=== PATIENT | female | born 1985 | race Caucasian/White ===

== ENCOUNTER → 2017-04-01 | Outpatient (CLI) | payer BC ==
[~2017-04-01] MED LIST: ETONMIS VAGRING; ONDA4TAB46 PO
--- NOTE | 2017-04-02 07:57 | MAMMOGRAPHY REPORT ---
BILATERAL DIGITAL DIAGNOSTIC MAMMOGRAM AND TARGETED BILATERAL ULTRASOUND: 04/01/2017 CLINICAL HISTORY: 31-year-old woman with bilateral subpectoral silicone implants placed in 2014 who reports the right implant feels harder and moves more compared to the left, and she has noticed this over the past few months. This is a change from when the implants were first placed. No family hi story of breast cancer. TECHNIQUE: Bilateral CC and MLO views of the breasts with and without implant displacement views we re obtained. COMPARISON: No prior exams were available for comparison. BREAST COMPOSITION: There are scattered areas of fibroglandular density in both breasts. FINDINGS: Bilateral subpectoral silicone implants are in place. There are folds noted in the right implant. No folds are identified on the left. No obvious extracapsular silicone is identified mamm ographically. There is a 5.6 mm nodular asymmetry in the lateral anterior left breast on the implan t displaced CC view, and a 6.2 mm nodular asymmetry in the superior posterior left breast on the imp lant displaced MLO view. Additional evaluation with ultrasound was performed. No other suspicious mass, architectural distortion or cluster of microcalcifications is seen within the breast parenchym a. Targeted ultrasound was performed in the lateral and superior left breast, and also throughout the r ight breast to assess the implant. In the 12:00 periareolar left breast, there is an oval parallel circumscribed hypoechoic mass measuring 3.3 x 1.6 x 2.8 mm. In the 1:00 left breast, 57 m from the nipple, there is a rounded hypoechoic solid versus cystic masses measuring 3.2 x 3.1 x 3.1 mm. Both could represent benign fat necrosis, complicated cyst or benign appearing mass such as a fibroadeno ma. A short interval follow-up diagnostic left mammogram and repeat targeted ultrasound in the 12:0 0 and 1:00 axes is recommended to ensure stability in 6 months. Sonographic evaluation of the right implant demonstrates a fold extending from the 12:00 and throughout the entire 3:00 axis. No defin ite stepladder sign is identified on ultrasound to suggest intracapsular rupture. No folds or evide nce of intracapsular rupture are seen in the left implant on ultrasound. IMPRESSION: ACR-BI-RADS CATEGORY 3: PROBABLY BENIGN, TARGETED ULTRASOUND ACR-BI-RADS CATEGORY 3: OK OBABLY BENIGN 1. There are folds visible throughout the right subpectoral silicone implant that are not evident o n the left. No definitive evidence of intracapsular or extracapsular rupture. It is unclear if thi s may simply represent normal variation in positioning. However, clinical follow-up with the patien t's plastic surgeon is recommended and if there is any concern for intracapsular or extracapsular ru pture, an MRI evaluation would be the test of choice. 2. There are subcentimeter nodular asymmetries in the lateral and superior left breast with benign- appearing correlates in the 12:00 and 1:00 axis on ultrasound that could represent benign fibroadeno mas, complicated cysts or fat necrosis. However, a short interval follow-up diagnostic left mammogr am and repeat targeted ultrasound is recommend to ensure stability in 6 month. These results and recommendations were discussed with the patient at the time of the exam. Approximately 10% of breast cancers are not detected with mammography. A negative mammographic repor t should not delay biopsy if a clinically suggestive mass is present. Elsi Vargas M.D. ay/:04/01/2017 13:27:03 Terminal Worker: Joie WASHINGTON)(Dominique), [facility] letter sent: Follow Up Recommended 3 BI-RADS Code: ACR-BI-RADS Category 3: Probably Benign Ultrasound BI-RADS: ACR-BI-RADS Category 3: P robably Benign
== END | disposition home or self-care (01) ==
LOC: C.MAMM 09:10
PROVIDERS: ATTEND Family Medicine
DX: T85.42XA Displacement of breast prosthesis and implant, initial encounter (principal); Y84.8 Other medical procedures as the cause of abnormal reaction of the patient, or of later complication, without mention of misadventure at the time of the procedure

== ENCOUNTER → 2017-05-10 | Outpatient (CLI) | payer BC ==
[~2017-05-10] MED LIST changes: -ONDA4TAB46 PO
[2017-05-10 13:03] LABS: URINE APPEARANCE CLEAR (CLEAR); URINE BILIRUBIN NEG (NEG); URINE COLOR YELLOW; URINE NITRITE NEG (NEG); URINE PH 5.5 (4.5-7.5); URINE SPECIFIC GRAVITY 1.017 (1.000-1.030); UROBILINOGEN NEG (NEG)
[2017-05-10 13:07] LABS: MANUAL MICROSCOPIC REQUIRED? NO; REVIEW REQ? NO
== END | disposition home or self-care (01) ==
LOC: C.LABSPEC 12:19
PROVIDERS: ATTEND Obstetrics & Gynecology
DX: Z34.90 Encounter for supervision of normal pregnancy, unspecified, unspecified trimester (principal)

== ENCOUNTER → 2017-05-16 | Outpatient (CLI) | payer BC ==
[2017-05-20 09:14] LABS: CHLAMYDIA TRACH RNA*** NOT DETECTED (NOT DETECTED); GC (NEIS GONORRHOEAE)RNA** NOT DETECTED (NOT DETECTED)
== END | disposition home or self-care (01) ==
LOC: C.LABSPEC 16:00
PROVIDERS: ATTEND Obstetrics & Gynecology
DX: Z34.90 Encounter for supervision of normal pregnancy, unspecified, unspecified trimester (principal)

== ENCOUNTER → 2017-06-10 | Outpatient (CLI) | payer BC ==
[2017-06-10 15:48] LABS: BASO % 0.1 %; BASO ABS # 0.01 K/uL (0-0.2); COMPLETE YES; EOS % 1.6 %; HEMATOCRIT 32.4 % (37-47); IG% 0.1 %; LYMPH % 17.6 %; LYMPH ABS # 1.46 K/uL (1.2-3.4); MEAN CELL VOLUME 90.5 fL (80-100); MEAN CORPUSCULAR HEMOGLOBIN 30.7 pg (25-34); MEAN PLATELET VOLUME 10.7 fL (7.4-10.4); MONO % 7.2 %; NEUT % 73.4 %; PLATELET COUNT 283 K/uL (130-400); RED BLOOD COUNT 3.58 M/uL (4.2-5.4); WHITE BLOOD COUNT 8.31 K/uL (4.8-10.8)
== END | disposition home or self-care (01) ==
LOC: C.LAB1850 14:25
PROVIDERS: ATTEND Obstetrics & Gynecology
DX: Z34.90 Encounter for supervision of normal pregnancy, unspecified, unspecified trimester (principal)

== ENCOUNTER → 2017-07-18 | Outpatient (CLI) | payer BC ==
[2017-07-18 11:52] LABS: GTGD 50 Grams
== END | disposition home or self-care (01) ==
LOC: C.LAB1850 09:01
PROVIDERS: ATTEND Obstetrics & Gynecology
DX: Z34.90 Encounter for supervision of normal pregnancy, unspecified, unspecified trimester (principal)

== ENCOUNTER → 2017-10-02 | Outpatient (CLI) | payer BC ==
[2017-10-02 10:37] LABS: HEMATOCRIT 30.4 % (37-47)
[2017-10-02 11:30] LABS: URINE APPEARANCE CLEAR (CLEAR); URINE BILIRUBIN NEG (NEG); URINE COLOR YELLOW; URINE EPITHELIAL CELL AUTO >30 /lpf (0-5); URINE NITRITE NEG (NEG); URINE SPECIFIC GRAVITY 1.022 (1.000-1.030); UROBILINOGEN NEG (NEG)
[2017-10-02 11:35] LABS: MANUAL MICROSCOPIC REQUIRED? NO; REVIEW REQ? NO
[2017-10-02 14:07] LABS: GTGD 50 Grams
== END | disposition home or self-care (01) ==
LOC: C.LAB1850 09:24
PROVIDERS: ATTEND Obstetrics & Gynecology
DX: Z34.82 Encounter for supervision of other normal pregnancy, second trimester (principal)

== ENCOUNTER → 2017-10-21 | Outpatient (CLI) | payer BC ==
[2017-10-21 16:00] LABS: URINE APPEARANCE CLEAR (CLEAR); URINE BILIRUBIN NEG (NEG); URINE COLOR YELLOW; URINE EPITHELIAL CELL AUTO >30 /lpf (0-5); URINE NITRITE NEG (NEG); URINE SPECIFIC GRAVITY 1.016 (1.000-1.030); UROBILINOGEN NEG (NEG)
[2017-10-21 16:04] LABS: MANUAL MICROSCOPIC REQUIRED? NO; REVIEW REQ? NO
== END | disposition home or self-care (01) ==
LOC: C.LABSPEC 15:40
PROVIDERS: ATTEND Obstetrics & Gynecology
DX: Z22.330 Carrier of Group B streptococcus (principal)

== ENCOUNTER 2017-12-10 19:08 | Outpatient (CLI) | payer OTHER ==
[~2017-12-10] VITALS: Ht 157.5 cm; Wt 69.4 kg
[2017-12-10 20:12] VITALS: Ht 157.5 cm; Wt 69.4 kg
[2017-12-10] MEDS ORDERED: PRENTAB26 PO (20:15)
[2017-12-10] MEDS ORDERED: FERR1TAB23 PO (20:15)
== END 2017-12-10 20:42 | disposition home or self-care (01) ==
LOC: C.LD 19:08 → C.OPB 19:08
PROVIDERS: ATTEND Obstetrics & Gynecology
DX: O36.5990 Maternal care for other known or suspected poor fetal growth, unspecified trimester, not applicable or unspecified (principal); Z3A.00 Weeks of gestation of pregnancy not specified

== ENCOUNTER 2017-12-11 07:41 | Inpatient (IN) | payer OTHER ==
[~2017-12-11] VITALS: Ht 157.5 cm; Wt 69.5 kg
[~2017-12-11 07:41] MED LIST changes: -ETONMIS VAGRING; +FERR1TAB23 PO; +PRENTAB26 PO
[2017-12-11 08:04] VITALS: Ht 157.5 cm; Wt 69.5 kg
[2017-12-11] MEDS ORDERED: LACTATED RINGER'S 1000ML 1,000 ML IV SCH (08:25)
[2017-12-11] MEDS ORDERED: LACTATED RINGER'S 1000ML 1,000 ML IV PRN (08:25)
[2017-12-11] MEDS ORDERED: LACTATED RINGER'S 1000ML 500 ML IV PRN ×2 (08:25→14:02)
[2017-12-11] MEDS ORDERED: OXYTOCIN 30 UNITS/500ML NSS IV PRN ×2 (08:30→15:30)
[2017-12-11 08:50] LABS: HEMATOCRIT 30.8 % (37-47); HEMOGLOBIN 10.4 g/dL (12.0-16.0); MEAN CELL VOLUME 95.1 fL (80-100); MEAN CORPUSCULAR HEMOGLOBIN 32.1 pg (25-34); MEAN CORPUSCULAR HGB CONC 33.8 g/dl (32-36); MEAN PLATELET VOLUME 10.9 fL (7.4-10.4); PLATELET COUNT 180 K/uL (130-400); RED CELL DISTRIBUTION WIDTH CV 14.1 % (11.5-14.5); RED CELL DISTRIBUTION WIDTH SD 48.5 fL (36.4-46.3); WHITE BLOOD COUNT 10.49 K/uL (4.8-10.8)
[2017-12-11] MEDS ORDERED: PENICILLIN G POTASSIUM IV 6 MU in DEXTROSE 5% 250ML 250 ML IV ONE (09:00)
[2017-12-11] MEDS ORDERED: PENICILLIN G POTASSIUM IV 3 MU in DEXTROSE 5% 100ML 100 ML IV PRN (09:00)
--- NOTE | 2017-12-11 09:26 | Medical Student: [facility] ---
Med Student History & Physical Date of Service Dec 11, 2017. Chief Complaint Induction of labor History of Present Illness Source: patient, clinic records, hospital records Patient is a 32 YOF, , with an DOROTHY of 12/25/2017 by LMP, who presents at 38 weeks of GA for induction of labor due to IUGR. The course has been complicated by IUGR which was diagnosed on growth ultrasound at 32 weeks ( 16th percentile). The patient's case was consulted with M in [place] via phonecall, who recommended inducing delivery at 39 weeks. The patient was then followed with twice weekly NSTs and weekly AFIs and dopplers which were reassuring. However, subsequent growth ultrasounds indicated the fetus was falling further off the growth curve (less than 2nd percentile) and thus it was decided to induce labor a week earlier at 38 weeks. The patient came to L&D last night to have an intrauterine pinon bulb placed. The bulb fell out this morning upon returning to L&D. She is currently not experiencing any contractions or leakage of fluids. Rubella Immune, GBS POSITIVE, HBV neg, VDRL/RPR nonreactive, C/G negative, Blood type A+, 1hr glucose 97mg/dL. H&H of 10.4 and 30.8. OB History of an 7lb 13oz male at 40-5 weeks of GA. INSTRUMENTS SALES REPRESENTATIVE History Menarche at age 10, LMP of 03/20/2017, last pap done in 03/23/16 and was normal. She has no history of abnormal pap smears. Past Medical History Migraines before menses Past Surgical History Breast augmentation in 2013 Social History Smoking Status: Never Smoker Smokeless Tobacco Use: No Alcohol Use: none Drug Use: none Marital Status: Housing status: lives with family Occupational Status: employed Allergies Coded Allergies: No Known Allergies (Unverified , None, 12/10/17) Home Medications Ferrous Sulfate (Iron), 1 TAB PO DAILY Multivit/Min/Iron/Fol Ac/Pren ( Vitamin), 1 TAB PO DAILY Review of Systems Constitutional: No fever, No chills Respiratory: No cough, No shortness of breath, No dyspnea on exertion Cardiovascular: No chest pain, No palpitations Abdomen: No pain, No nausea, No vomiting Genitourinary - Female: + dysuria, + urinary frequency, + urinary incontinence , + urinary retention Psychiatric: + depression symptoms Physical Exam General Appearance: WD/WN, no apparent distress Head: normocephalic, atraumatic Eyes: normal inspection ENT: normal ENT inspection Respiratory/Chest: chest non-tender, lungs clear, normal breath sounds, no respiratory distress, no accessory muscle use Cardiovascular: regular rate, rhythm, no edema, no gallop, no murmur Abdomen / GI: normal bowel sounds, non tender, soft, + pertinent finding ( Gravid abdomen. heart tones present. Estimated weight of 6 lbs. Fetus is vertex. ) Fundal Height: Term Genitourinary - Female: external genitalia normal, + pertinent finding (Cervix exam performed by Dr. Hussein found the patient at 2cm dilated, 50% effaced, and -2 station. ) Extremities: normal inspection, no calf tenderness Neurologic/Psych: alert, normal mood/affect, normal reflexes, oriented x 3 Skin: normal color, warm/dry, no rash Monitoring External Monitor: Moderate variability, accels present, variable decels present, baseline heart rate of 130, category 2 tracing. Tocodynamometer: No contractions present. Laboratory Results 12/11/17 08:35 Test 12/11/17 08:35 Red Blood Count 3.24 M/uL (4.2-5.4) Mean Corpuscular Volume 95.1 fL (80-100) Mean Corpuscular Hemoglobin 32.1 pg (25-34) Mean Corpuscular Hemoglobin Concent 33.8 g/dl (32-36) RDW Standard Deviation 48.5 fL (36.4-46.3) RDW Coefficient of Variation 14.1 % (11.5-14.5) Mean Platelet Volume 10.9 fL (7.4-10.4) Assessment and Plan Assessment: Patient is a 32YOF at 38 weeks of GA. has been complicated with IUGR. tracing category 2. Plan: Admit to L&D. Will start pitocin to get the patient into a regular contraction pattern. Patient is GBS positive so will give penicillin at this time. The EFM has been showing some variable decels prior to starting pitocin. Given the fetus' small size, there is some concern that the fetus may not have much reserve and will not tolerate labor well and later require C/S. For now, we will continue with the planned induction of labor with pitocin and continue to monitor.
[2017-12-11] MEDS ORDERED: BUPIVACAINE 0.25% 30 ML VIAL ONE (13:22)
[2017-12-11] MEDS ORDERED: EpHEDrine SULFATE INJ 50 MG/ML AMP ONE (13:22)
[2017-12-11] MEDS ORDERED: FENTANYL CITRATE INJ 50 MCG/1 ML 2 ML VIAL ONE (13:22)
[2017-12-11] MEDS ORDERED: FENTANYL 2MCG/ML ROPIV 1.25MG/ML 100ML BAG EPI ONE (13:23)
[2017-12-11] MEDS ORDERED: NALOXONE HCL INJ 1 MG in SODIUM CHLORIDE 0.9% 1000ML 1,000 ML IV PRN (14:02)
[2017-12-11] MEDS ORDERED: NALOXONE HCL INJ 0.4 MG/1 ML VIAL/CARP IV PRN (14:15)
[2017-12-11] MEDS ORDERED: FENTANYL 2MCG/ML ROPIV 1.25MG/ML 100ML BAG EPI PRN (14:15)
[2017-12-11] MEDS ORDERED: NALBUPHINE HCL INJ 10 MG/ML AMP IV PRN (14:15)
[2017-12-11] MEDS ORDERED: EpHEDrine SULFATE INJ 50 MG/ML AMP IV PRN (14:15)
[2017-12-11] MEDS ORDERED: ONDANSETRON INJ 2 MG/ML 2 ML VIAL IV PRN (14:15)
[2017-12-11] MEDS ORDERED: DiphenhydrAMINE HCL 50 MG/ML VIAL IV PRN (14:15)
[2017-12-11] MEDS ORDERED: ACETAMINOPHEN/CODEINE 300/30MG TAB PO PRN ×2 (15:30)
[2017-12-11] MEDS ORDERED: ACETAMINOPHEN 325 MG TAB PO PRN (15:30)
[2017-12-11] MEDS ORDERED: DIPHTHERIA/TETANUS/PERTUSSIS 0.5 ML SYR/VIAL IM. ONE (15:30)
[2017-12-11] MEDS ORDERED: LANOLIN OINT EXT PRN (15:30)
[2017-12-11] MEDS ORDERED: HYDROCORTISONE ACETATE 25 MG SUPP PR PRN (15:30)
[2017-12-11] MEDS ORDERED: SUPERCREAM 0.870 % 15GM JAR EXT PRN (15:30)
[2017-12-11] MEDS ORDERED: BENZOCAINE 20% AER SPR 82.5 GM CAN EXT PRN (15:30)
--- NOTE | 2017-12-11 15:33 | Medical Student: [facility] ---
Medical Student Delivery Note Patient is a 32 YOF GBS positive now P2 with DOROTHY 12/25/2017 by LMP who presented to L&D this morning for induction of labor at 38 weeks due to IUGR. The patient's was entirely normal until decreased growth was found on a 32 week growth ultrasound. The baby was found be to at the 3rd percentile at this time. [facility] had originally recommended delivery be induced at 39 weeks, but later changed that recommendation to induce at 38 weeks after the infant fell off the growth curve at 36 weeks to less than the 2nd percentile. Labor was induced this morning with pitocin per the usual induction protocol in addition to administration of penicillin. The patient's labor progressed nicely throughout the day. The infant did have variable decels throughout the day on tracing, but remained a category 2 tracing. The patient was checked early this afternoon by Dr. Hussein and was found to be at 6cm. At this point, an epidural was placed. A second dose of penicillin was given this afternoon to fully treat the mother for GBS positivity. The patient progressed to full dilation over the course of the next hour. The continued with a category 2 tracing over this period. The patient then proceeded to push over 3-4 contractions. After delivery of the infants head, a nuchal cord was noted and quickly reduced. Mouth and nose was suctioned at the perineum. During the next contraction, the patient pushed to deliver a viable, vigorous male at 1459. The infant was placed on the mother's abdomen and immediately began to cry. The infant appeared to be small but anatomically proportional. Apgars were 8/9. The cord was doubly clamped at this point and the infant's father cut the cord. The placenta was then delivered via gentle traction on the umbilical cord. Attention was then returned to the perineum where a midline 2nd degree laceration was noted. This was repaired with 4-0 vicryl in the usual fashion. Hemostasis was achieved after repair of the laceration. Placenta was held for examination. Cord blood and gases were obtained and sent for analysis. EBL was 300mL for the delivery. Sponge and needle count was correct at the end of the delivery. At the time of this note, the and mother are resting comfortably in labor and delivery.
--- NOTE | 2017-12-11 15:34 | Anesthesia Procedure Note ---
Anesthesia Epidural Removal Nt Date & Time Dec 11, 2017 at 15:33 Vital Signs Pain Intensity: 1 Notes Mental Status: alert / awake / arousable, participated in evaluation Nausea / Vomiting: adequately controlled Pain: adequately controlled Airway Patency, RR, SpO2: stable & adequate BP & HR: stable & adequate Hydration State: stable & adequate Neuraxial Anesthesia: was administered Anesthetic Complications: no major complications apparent, pt satisfied with anesthetic care Epidural: removed without complications, with tip intact
[2017-12-11 18:40] VITALS: BP 109/72; PULSE 75; TEMP 36.8
--- NOTE | 2017-12-11 18:44 | DELIVERY SUMMARY ---
DATE OF OPERATION: 12/11/2017 FINDINGS: Viable male with Apgars of 8 and 9. Baby delivered spontaneously over a midline second degree laceration. Nuchal cord x1 reduced on the perineum. Cord gases and cord blood samples obtained. Laceration repaired with 4-0 Vicryl in a routine fashion. ESTIMATED BLOOD LOSS: 300 mL. LABOR NOTE: The patient is a 32-year-old 2, para 1 with an EDC of 24 December at 38 weeks gestational age who was admitted for term induction for symmetric IUGR. The patient was diagnosed with IUGR at 32 weeks gestational age on a routine growth ultrasound. She was followed with serial ultrasounds as well as testing. On the testing was reassuring the baby fell off the growth curve at 38 weeks. A phone consultation with maternal medicine in [place], they recommended 38 week delivery. The patient's blood type is A positive. Antibody negative, rubella immune, hepatitis B negative, normal panorama, normal 1-hour Glucola x2, positive third trimester beta strep culture. Upon admission, cervix was 1 cm dilated, 50% effaced and -2 station. Pitocin was initiated per induction protocol and the patient was started on penicillin 6 million unit loading dose and 3 million units every 4 hours until delivery. The patient got into a good active labor pattern, progressed to 5 cm. Anesthesia was consulted and an epidural was placed. Shortly after the epidural, the patient progressed to full dilatation, began her second stage. She pushed for approximately 10 minutes delivering the viable male infant. Nuchal cord x1 was reduced on the perineum. Cord was clamped and cut. Cord gases and cord blood samples obtained. Placenta was delivered spontaneously and sent for pathological evaluation. Inspection of the perineum showed a midline second degree laceration which was repaired with 4-0 Vicryl. Estimated blood loss 300 mL. Sponge and needle count was correct. I attest to the content of the Intraoperative Record and any orders documented therein. Any exception s are noted below.
[2017-12-11] MEDS: DOCUSATE SODIUM 100 MG CAP PO SCH (19:58)
[2017-12-11 23:45] VITALS: BP 115/75; PULSE 65; TEMP 36.8
[2017-12-12 03:05] VITALS: BP 115/75; PULSE 80; TEMP 36.6
[2017-12-12] MEDS: IBUPROFEN 600 MG TAB PO PRN ×4 (03:14→20:09)
--- NOTE | 2017-12-12 06:41 | Medical Student: [facility] ---
Med Student BOARD OF DIRECTORS Progress Nt Date of Service Dec 12, 2017. Subjective conversation w/ patient, conversation w/ family, physical exam, chart review, lab review Ambulation: limited ambulation Voiding: no voiding problems, no incontinence Diet Tolerance: Regular Diet Lochia: Small Feeding Type: Breast Feeding Pain: Minimal, controlled with motrin. Notes: Patient did well overnight, no complaints. Is . Took first dose of motrin this AM for some mild cramping. Thinks she would like to go home tomorrow (12/13/2017). Review of Systems Constitutional: No fever, No chills Respiratory: No shortness of breath Cardiac: No chest pain, No palpitations Breast: No breast pain Abdomen: No pain, No nausea, No vomiting Female : No dysuria, No urinary frequency, No incontinence Objective Vital Signs Date Time Temp Pulse Resp B/P (MAP) Pulse Ox O2 Delivery O2 Flow Rate FiO2 12/12/17 03:05 36.6 80 18 115/75 (88) Room Air 12/11/17 23:45 Room Air 12/11/17 23:45 36.8 65 18 115/75 (88) Room Air 12/11/17 18:40 36.8 75 92 109/72 (84) Room Air Physical Exam General Appearance: WELL-APPEARING, WD/WN, NO APPARENT DISTRESS Respiratory/Chest: chest non-tender, lungs clear, normal breath sounds, no respiratory distress, no accessory muscle use Cardiovascular: regular rate, rhythm, no edema, no gallop, no JVD, no murmur Abdomen: normal bowel sounds, non tender, soft Fundus: Firm, Relation to Umbilicus (At the level of the umbilicus.) Extremities: normal range of motion, non-tender, no pedal edema, no calf tenderness Laboratory Results Last 24 Hours Test 12/11/17 08:35 12/12/17 06:27 White Blood Count 10.49 K/uL Red Blood Count 3.24 M/uL Hemoglobin 10.4 g/dL Hematocrit 30.8 % Mean Corpuscular Volume 95.1 fL Mean Corpuscular Hemoglobin 32.1 pg Mean Corpuscular Hemoglobin Concent 33.8 g/dl RDW Standard Deviation 48.5 fL RDW Coefficient of Variation 14.1 % Platelet Count 180 K/uL Mean Platelet Volume 10.9 fL Assessment and Plan Post- Day Number: 1 Continue Routine Care: Assessment: Patient is a now P2 PPD#1 of NVSD of a viable 5lb 10oz male . Plan: Will continue with routine care at this time. Encouraged patient to continue with motrin as needed. Discussed the need for her to be up and walking around the unit today. Vitals reviewed and were stable overnight. Will recheck a H&H this morning.
--- NOTE | 2017-12-12 06:58 | Progress Note ---
Subjective Dec 12, 2017. Subjective conversation w/ patient (patient seen at the bedside, no complaints reported overnight) Ambulation: limited ambulation Voiding: no voiding problems Passing Gas: Yes Diet Tolerance: Regular Diet Lochia: Moderate Feeding Type: Breast Feeding Pain: 11/20, well controlled with pain meds Review of Systems Constitutional: No fever, No chills, No sweats Respiratory: No cough, No shortness of breath Cardiac: No chest pain Breast: No breast pain Abdomen: No pain, No nausea, No vomiting Female : No dysuria Objective Vital Signs Date Time Temp Pulse Resp B/P (MAP) Pulse Ox O2 Delivery O2 Flow Rate FiO2 12/12/17 03:05 36.6 80 18 115/75 (88) Room Air 12/11/17 23:45 Room Air 12/11/17 23:45 36.8 65 18 115/75 (88) Room Air 12/11/17 18:40 36.8 75 92 109/72 (84) Room Air Physical Exam General Appearance: WELL-APPEARING, WD/WN, NO APPARENT DISTRESS Respiratory/Chest: chest non-tender, lungs clear, normal breath sounds, no respiratory distress, no accessory muscle use Cardiovascular: regular rate, rhythm, no edema, no gallop, no murmur Abdomen: normal bowel sounds, non tender, soft Fundus: Firm, Tender, Relation to Umbilicus (at the umbilicus) Extremities: non-tender, normal inspection, no pedal edema, no calf tenderness Laboratory Results Last 24 Hours Test 12/11/17 08:35 12/12/17 06:27 White Blood Count 10.49 K/uL Red Blood Count 3.24 M/uL Hemoglobin 10.4 g/dL 10.0 g/dL Hematocrit 30.8 % 30.0 % Mean Corpuscular Volume 95.1 fL Mean Corpuscular Hemoglobin 32.1 pg Mean Corpuscular Hemoglobin Concent 33.8 g/dl RDW Standard Deviation 48.5 fL RDW Coefficient of Variation 14.1 % Platelet Count 180 K/uL Mean Platelet Volume 10.9 fL Medications Current Inpatient Medications Medications (Trade) Dose Ordered Sig/Mary Route Start Time Stop Time Status Last Admin Dose Admin Lactated Ringer's 1,000 ml @ 125 mls/hr Q8H IV 12/11/17 08:25 12/13/17 08:24 12/11/17 09:00 125 MLS/HR Lactated Ringer's 1,000 ml @ 999 mls/hr Q1H1M PRN IV 12/11/17 08:25 01/10/18 08:24 12/11/17 09:26 999 MLS/HR Oxytocin (Pitocin IV) 30 units UD PRN IV 12/11/17 08:30 01/10/18 08:29 12/11/17 09:02 30 UNITS Lactated Ringer's 500 ml @ 999 mls/hr Q31M PRN IV 12/11/17 08:25 01/10/18 08:24 Penicillin G Potassium 3 mu/ Dextrose 106 ml @ 100 mls/hr Q4H PRN IV 12/11/17 09:00 12/13/17 08:59 12/11/17 12:39 100 MLS/HR Oxytocin (Pitocin IV) 30 units UD PRN IV 12/11/17 15:30 01/10/18 15:29 Benzocaine (Dermoplast Aero Spr) 1 appln PRN PRN EXT 12/11/17 15:30 01/10/18 15:29 12/12/17 05:39 82.5 APPLN Cocaine HCl (Supercream 0.870% Cr) BID PRN EXT 12/11/17 15:30 12/25/17 15:29 Hydrocortisone Acetate (Anusol Hc Supp) 25 mg BID PRN NM 12/11/17 15:30 01/10/18 15:29 Lanolin (Lanolin Oint) PRN PRN EXT 12/11/17 15:30 01/10/18 15:29 Prenat Multivit/ [place]/Iron/Folic Ac ( Vitamin Tab) 1 tab DAILY PO 12/12/17 08:00 01/11/18 07:59 Ibuprofen (Motrin Tab) 600 mg Q4H PRN PO 12/11/17 15:30 01/10/18 15:29 12/12/17 03:14 600 MG Acetaminophen (Tylenol Tab) 650 mg Q6H PRN PO 12/11/17 15:30 01/10/18 15:29 Acetaminophen/ Codeine Phosphate (Tylenol w/ Codeine #3 Tab) 1 tab Q4H PRN PO 12/11/17 15:30 01/10/18 15:29 Acetaminophen/ Codeine Phosphate (Tylenol w/ Codeine #3 Tab) 2 tab Q4H PRN PO 12/11/17 15:30 01/10/18 15:29 Bisacodyl (Dulcolax Tab) 5 mg 20 PO 12/12/17 20:00 12/12/17 20:01 Docusate Sodium (coLACE CAP) 100 mg BID PO 12/11/17 20:00 01/10/18 19:59 12/11/17 19:58 100 MG Ferrous Sulfate (Feosol Tab) 325 mg DAILY PO 12/12/17 08:00 01/11/18 07:59 Assessment and Plan Post- Day#: 1 Continue Routine Care: 32 year old [id number] s/p vaginal delivery w/planned induction due to worsening IUGR - patient doing well clinically - A+, rubella immune, GBS +ve - continue encouraging ambulation and - monitor lochia - vitals reviewed and wnl - continue analgesia prn - Hgb 10.4 on arrival, today 10.1 Resident Physician Supervision Note: I interviewed and examined the patient. Discussed with Dr. Reid and agree with findings and plan as documented in the note. Any exceptions or clarifications are listed here: [None] Documented By: Miguel Hussein Resident Tracking Resident Involvement: Resident Care Provided Care Provided: OB Delivery
--- NOTE | 2017-12-12 07:08 | Discharge Instructions ---
Discharge Instructions Date of Service Dec 12, 2017. Admission Reason for Admission: Induction Discharge Discharge Diagnosis / Problem: Vaginal Delivery Discharge Goals Goal(s): Routine recovery after delivery Medications Continue Dispensed Medications: supercream, dermaplast, tucks, lansinoh Activity Recommendations Activity Limitations: per Instructions/Follow-up section . Instructions / Follow-Up Instructions / Follow-Up ACTIVITY RECOMMENDATIONS: * Gradual return to full activity over the next 2-3 weeks. * No lifting - nothing heavier than baby over the next 2-3 weeks. * Do not engage in vigorous exercise, sexual activity or sports until cleared by your physician. * Do not drive or operate any motorized equipment until cleared by your physician. * You may shower/bathe daily. MEDICATIONS: For discomfort or pain, you may use Acetaminophen (Tylenol), Ibuprofen (Advil), or Naproxen (Aleve) following the package directions. For constipation you may use Colace following the package directions. BREAST CARE: If you are not breast feeding: * Wear a supportive bra 24 hours a day for one to two weeks. * Avoid stimulating your breasts and nipples as much as possible during the first few weeks after delivery. * When taking a shower, have the warm water hit your back, not breasts. * When your breasts feel full, apply ice packs. Usually three to four times a day helps ease the discomfort. * Take a mild pain medication (Tylenol / Motrin) when you are uncomfortable. If breast feeding: * Use breast milk to lubricate nipples. Lansinoh cream may be used for sore nipples. You do not need to remove cream prior to breast feeding. If using a different brand of cream, check the label for directions regarding removal of cream prior to nursing. * Wear a supportive bra. * If having problems with breasts or breast feeding, call a homemaking rehabilitation consultant or your health care provider. EPISIOTOMY CARE: After delivery, if you have an episiotomy (stitches), the following steps will ease discomfort and aid healing. * For the first 24 hours after delivery, place ice packs next to your episiotomy to help reduce swelling. * After the first 24 hour-period, sitz baths, either portable or in the tub, are suggested. A shower with a shower arm sprayed over the episiotomy may be comforting. * Norma care should be done after each voiding and bowel movement. Squirt warm water from a plastic bottle over the perineum (region of the body between the anus and urinary opening) and pat dry. * Use Dermoplast to ease discomfort. Shake container. [place] directly over the episiotomy. Place a Tucks on a clean sanitary pad next to your episiotomy. SPECIAL CARE INSTRUCTIONS: When you are discharged from the hospital, it is important for you to follow the instructions listed below: * During the first week at home, you should be able to care for yourself and your baby. In addition, the usual light household activities are encouraged. * Limit your activities to the way you feel. Do not try to clean the house or move furniture. Be sensible. * If you actively engage in sports and have done so up until the time of your delivery, you may resume these activities as soon as you feel able. This may take up to one month or even longer. Use good judgment. * Continue to take your vitamins for at least six weeks after the of your baby. * Your diet need not be limited unless you were on a special diet before your delivery. Breast-feeding mothers need around 2500 calories per day and at least 64-80 ounces of fluid per day (8 to 10 glasses). * You should eat foods from the four major food groups. Crash diets or fad diets are to be avoided. Eating lean meats, fresh fruits and vegetables, low-fat dairy products, high fiber foods and a regular exercise program, will help you get back to your pre- weight without putting your health at risk. * Constipation is sometimes a problem after delivery. Take a mild laxative as needed. If breast feeding, Milk of Magnesia is acceptable to use. You may use a suppository or Fleets enema if no episiotomy. * A daily shower or tub bath is suggested. Be sure to thoroughly and gently dry the perineum. * A bloody vaginal discharge will usually continue until around four weeks post . A small amount of bleeding may continue for as long as six weeks. Vaginal discharge changes from the bright red bleeding after delivery to pink then brownish and finally yellowish-pink before becoming white and disappearing. * Bleeding may increase with activity. Your first period may come in 4-8 weeks. If you are breast feeding, your period may be delayed even longer. * [place] (sex) can begin whenever both you and your partner feel comfortable and do not have any form of genital infection. It is recommended that you wait at least six weeks for internal and external healing to occur. If you have questions, please talk to your health care practitioner. A condom should be used to prevent infection and . * Foreplay, gentle intercourse and lubrication is very important the first several times to prevent pain. A water-based lubricant such as K-Y jelly or Astroglide may be used. * If you have RH negative blood and your baby is RH positive, you will receive RHOGAM by injection prior to discharge. The nurse will give you a card to keep with you that has the date and place that you received RHOGAM after delivery. * During your care, you had a Rubella screen done to check for the presence of rubella antibodies in your blood. If your test was negative, you will receive a Rubella vaccine prior to discharge. This vaccine may cause a fever, soreness at the injection site and flu-like symptoms. If these symptoms persist, notify your health care practitioner. is not advised for one month after a Rubella vaccine. * Verbalizes understanding of car seat law as reviewed with patient nursing. * Car Seat hand-out given and reviewed with patient by nursing. * Shaken baby information reviewed with patient by nursing. Call you doctor if: * Heavy bleeding (saturating several pads an hour) or passing clots the size of your fist. * A fever >101 degrees F (38.3 degrees C) on two occasions four hours apart and /or chills. * Unusual pain in the pelvic or vaginal areas. * "Baby Blues" lasting longer than two weeks. If you have any questions or concerns, call your health care practitioner at . FOLLOW UP VISIT: * Please call the office at to schedule a 6 week examination. It is important you keep this appointment. It is important for you to make arrangements for either yearly or twice yearly check-ups thereafter. Current Hospital Diet Patient's current hospital diet: Regular OB Diet Discharge Diet Recommended Diet: Regular Diet Pending Studies Studies pending at discharge: no Medical Emergencies . Who to Call and When: Medical Emergencies: If at any time you feel your situation is an emergency, please call 911 immediately. . Non-Emergent Contact Non-Emergency issues call your: Primary Care Provider . . "Provider Documentation" section prepared by Albert Reid. . VTE Core Measure Inpt VTE Proph given/why not?: Treatment not indicated
[2017-12-12 07:30] VITALS: BP 107/71; PULSE 75; TEMP 36.6; O2SAT 98
[2017-12-12] MEDS: FERROUS SULFATE 325 MG TAB PO SCH (08:20)
[2017-12-12] MEDS: PRENATAL VITAMIN TAB PO SCH (08:21)
[2017-12-12] MEDS: DOCUSATE SODIUM 100 MG CAP PO SCH ×2 (08:21→20:09)
[2017-12-12 10:02] VITALS: O2SAT 98
[2017-12-12 11:22] VITALS: BP 111/74; PULSE 82; TEMP 36.6; O2SAT 99
[2017-12-12 15:50] VITALS: BP 116/69; PULSE 80; TEMP 36.9
[2017-12-12] MEDS ORDERED: BISACODYL 5 MG TABEC PO SCH (20:00)
[2017-12-12 23:55] VITALS: BP 104/68; PULSE 60; TEMP 36.7
[2017-12-13] MEDS: IBUPROFEN 600 MG TAB PO PRN (06:06)
--- NOTE | 2017-12-13 06:51 | Medical Student: [facility] ---
Med Student SOURCING ENGINEER Progress Nt Date of Service Dec 13, 2017. Subjective conversation w/ patient, physical exam, chart review, lab review Ambulation: ambulating normally Voiding: no voiding problems Diet Tolerance: Regular Diet Lochia: Small Feeding Type: Breast Feeding Pain: Minimal. Controlled with motrin. Notes: No events overnight. Patient states she is doing well. Mood and affect seem bright. Lochia was slowed down to less than a normal period. Baby is well. Mom slept 7 hours last night. Review of Systems Constitutional: No fever, No chills Respiratory: No cough, No shortness of breath Cardiac: No chest pain, No palpitations Breast: No breast pain Abdomen: No pain, No nausea, No vomiting, No diarrhea Female : No dysuria, No incontinence Objective Vital Signs Date Time Temp Pulse Resp B/P (MAP) Pulse Ox O2 Delivery O2 Flow Rate FiO2 12/12/17 23:55 36.7 60 18 104/68 (80) Room Air 12/12/17 23:55 Room Air 12/12/17 15:50 36.9 80 20 116/69 (85) Room Air 12/12/17 15:50 Room Air 12/12/17 11:22 36.6 82 20 111/74 (86) 99 Room Air 12/12/17 10:02 98 Room Air 12/12/17 07:30 36.6 75 20 107/71 (83) 98 Room Air 12/12/17 07:15 Room Air Physical Exam General Appearance: WELL-APPEARING, WD/WN, NO APPARENT DISTRESS, uncomfortable Respiratory/Chest: chest non-tender, lungs clear, normal breath sounds, no respiratory distress, no accessory muscle use Cardiovascular: regular rate, rhythm, no edema, no gallop, no JVD, no murmur Abdomen: normal bowel sounds, non tender, soft Fundus: Firm, Relation to Umbilicus (1cm below the umbilicus) Extremities: normal range of motion, non-tender, normal inspection, no calf tenderness Assessment and Plan Post- Day Number: 2 Continue Routine Care: Assessmet: Ebony is a 32YOF now P2 PPD#2 s/p NVD. Her period thus far has been uncomplicated. Plan: Ebony is ready to go home today. Baby is going to get circumcised this morning, and we will plan for D/C after that. Recommended that she continues with motrin for the soreness she is experiencing. Provided anticipatory guidance about changes in lochia. Discussed nothing in vagina until 6 week post- visit.
--- NOTE | 2017-12-13 07:37 | Progress Note ---
Subjective Dec 13, 2017. Subjective conversation w/ patient (Patient seen and examined at bedside.) Ambulation: ambulating normally Voiding: no voiding problems Passing Gas: Yes Diet Tolerance: Regular Diet Lochia: Moderate Feeding Type: Breast Feeding Pain: Pain well controlled with analgesia Review of Systems Constitutional: No fever Objective Vital Signs Date Time Temp Pulse Resp B/P (MAP) Pulse Ox O2 Delivery O2 Flow Rate FiO2 12/12/17 23:55 36.7 60 18 104/68 (80) Room Air 12/12/17 23:55 Room Air 12/12/17 15:50 36.9 80 20 116/69 (85) Room Air 12/12/17 15:50 Room Air 12/12/17 11:22 36.6 82 20 111/74 (86) 99 Room Air 12/12/17 10:02 98 Room Air Assessment and Plan Post- Day#: 1
--- NOTE | 2017-12-13 08:06 | Progress Note ---
Subjective Dec 13, 2017. Subjective conversation w/ patient, physical exam, lab review Ambulation: ambulating normally Voiding: no voiding problems Passing Gas: Yes Diet Tolerance: Regular Diet Lochia: Small Feeding Type: Breast Feeding Pain: pain controlled Objective Vital Signs Date Time Temp Pulse Resp B/P (MAP) Pulse Ox O2 Delivery O2 Flow Rate FiO2 12/12/17 23:55 36.7 60 18 104/68 (80) Room Air 12/12/17 23:55 Room Air 12/12/17 15:50 36.9 80 20 116/69 (85) Room Air 12/12/17 15:50 Room Air 12/12/17 11:22 36.6 82 20 111/74 (86) 99 Room Air 12/12/17 10:02 98 Room Air Physical Exam General Appearance: WD/WN, NO APPARENT DISTRESS Abdomen: non tender, soft Fundus: Firm, Non-Tender, Relation to Umbilicus (1 below u) Extremities: non-tender, normal inspection Assessment and Plan Post- Day#: 2 Continue Routine Care: Doing well. Desires d/c. Instructions given.
[2017-12-13] MEDS: FERROUS SULFATE 325 MG TAB PO SCH (08:25)
[2017-12-13] MEDS: PRENATAL VITAMIN TAB PO SCH (08:25)
[2017-12-13] MEDS: DOCUSATE SODIUM 100 MG CAP PO SCH (08:25)
[2017-12-13 09:30] VITALS: BP 112/75; PULSE 68; TEMP 36.5
[2017-12-13 14:25] VITALS: BP_DIAS 75; PULSE 68; TEMP 36.5
== END 2017-12-13 14:30 | disposition home or self-care (01) | DRG 775 ==
LOC: C.LD 07:41 → C.OBG 18:10
PROVIDERS: ADMIT Obstetrics & Gynecology; ATTEND Obstetrics & Gynecology
PROC: 0KQM0ZZ Repair Perineum Muscle, Open Approach (ICD-10-PCS; principal; 2017-12-11)
PROC: 10E0XZZ Delivery of Products of Conception, External Approach (ICD-10-PCS; principal; 2017-12-11)
PROC: 3E033VJ Introduction of Other Hormone into Peripheral Vein, Percutaneous Approach (ICD-10-PCS; 2017-12-11)
DX: O36.5930 Maternal care for other known or suspected poor fetal growth, third trimester, not applicable or unspecified (principal); O70.1 Second degree perineal laceration during delivery; O76 Abnormality in fetal heart rate and rhythm complicating labor and delivery; O69.81X0 Labor and delivery complicated by cord around neck, without compression, not applicable or unspecified; Z22.330 Carrier of Group B streptococcus; Z3A.38 38 weeks gestation of pregnancy; Z37.0 Single live birth

== ENCOUNTER → 2018-01-24 | Outpatient (CLI) | payer OTHER ==
--- NOTE | 2018-01-24 13:55 | MAMMOGRAPHY REPORT ---
UNILATERAL LEFT DIGITAL DIAGNOSTIC MAMMOGRAM TOMOSYNTHESIS WITH CAD AND TARGETED LEFT ULTRASOUND: 01/09 CLINICAL HISTORY: Short interval follow-up of left breast masses and left breast asymmetries. The pa dana stopped breast-feeding approximately 1 week ago. She denies any palpable lumps or other compla ints. TECHNIQUE: Breast tomosynthesis in addition to standard 2D mammography was performed. Current study was also evaluated with a Computer Aided Detection (CAD) system. Left CC and MLO 2D and tomosynthesi s images were obtained; tomosynthesis images were obtained of the implant displaced views only. COMPARISON: Comparison is made to exams dated: 04/01/2017 ultrasound and 04/01/2017 mammogram - [facility]. BREAST COMPOSITION: The tissue of the left breast is extremely dense, which lowers the sensitivity o f mammography. FINDINGS: There is diffusely increased density and prominent ducts seen throughout the left breast co mpared to the prior mammogram, consistent with lactational changes. This significantly reduces the s ensitivity of the exam. However, within the limitations of the exam, there are no suspicious masses, calcifications, or areas of architectural distortion. The previously seen asymmetry is within the l eft lateral anterior breast and left superior posterior breast are not clearly evident on the current exam, however, the may be obscured by the lactational changes. A subpectoral silicone implant appea rs stable. Targeted ultrasound was performed of the left 12 to 1:00 breast in the region of the previously seen mammographic masses. The breast parenchyma is diffusely heterogeneous, consistent with lactational c hanges. The previously seen mass in the left 12:00 periareolar breast is no longer evident. In the left 11:00 periareolar breast, there is a round circumscribed hypoechoic mass with a thin internal se ptation which measures 3 x 2 mm which is probably benign and may represent a complicated cyst. In th e left 1:00 breast, 5 cm from the nipple, again noted is a round circumscribed hypoechoic mass which measures 3 x 3 x 3 mm. This mass is not significantly changed compared to the March 2017 exam and is p robably benign and may represent a complicated cyst versus benign mass such as a fibroadenoma. IMPRESSION: ACR-BI-RADS CATEGORY 3: PROBABLY BENIGN, TARGETED ULTRASOUND ACR-BI-RADS CATEGORY 3: PRO BABLY BENIGN 1. Circumscribed hypoechoic 3 mm mass in the left 1:00 breast on ultrasound is stable compared to March 2017 exam and is probably benign. Another circumscribed benign-appearing hypoechoic 3 mm mass in the left 11:00 periareolar breast is also probably benign. Recommend follow-up diagnostic tomosyn thesis mammograms and ultrasound of the left breast in 6 months to confirm longer stability. 2. The previously seen left breast mammographic asymmetries are not evident on the current exam, capellan alicia, there are lactational changes which reduce the sensitivity of the exam. The asymmetries can be assessed on the follow-up mammograms in 6 months; the lactational changes should be resolved at that time as the patient stopped breast-feeding 1 week ago. The patient has been verbally notified of the results. Approximately 10% of breast cancers are not detected with mammography. A negative mammographic report should not delay biopsy if a clinically suggestive mass is present. Mildred Morris M.D. ah/:01/24/2018 08:57:30 Layout Artist: Natalee Prado, [facility] letter sent: Follow Up Recommended 3 BI-RADS Code: ACR-BI-RADS Category 3: Probably Benign Ultrasound BI-RADS: ACR-BI-RADS Category 3: Pr obably Benign
== END | disposition home or self-care (01) ==
LOC: C.MAMM 08:23
PROVIDERS: ATTEND Family Medicine
DX: N64.89 Other specified disorders of breast (principal); N63.20 Unspecified lump in the left breast, unspecified quadrant